=== PATIENT | male | born 1995 | race Caucasian/White ===

== ENCOUNTER 2019-09-20 20:15 | Emergency (ER) | payer SELFPAY ==
[~2019-09-20] VITALS: Ht 180.3 cm; Wt 77.1 kg
--- NOTE | 2019-09-20 20:35 | NUR ---
PT [id number]. BIBS FOR C/O THROAT PAIN AND INFECTION
[2019-09-20] MEDS ORDERED: DEXAMETHASONE SOD PHOSPHATE 10 MG/ML VIAL ONE (20:58)
[2019-09-20] MEDS ORDERED: DEXAMETHASONE SOD PHOSPHATE 10 MG/ML VIAL MC ONE (21:00)
--- NOTE | 2019-09-20 21:04 | NUR ---
STREP SENT TO LAB
--- NOTE | 2019-09-20 22:02 | NUR ---
Patient discharged to home in stable condition. Written and verbal after care instructions given. Patient verbalizes understanding of instruction and RX. Pt Ambulated with steady gait.
[2019-09-20 22:03] VITALS: BP 126/81
== END 2019-09-20 22:03 | disposition home or self-care (01) ==
LOC: ER 20:18
DX: J02.9 Acute pharyngitis, unspecified (principal)
CPT/HCPCS: 87070; 87880; 96372; 99283; J1100; 86403-TC

== ENCOUNTER 2019-09-25 15:18 | Emergency (ER) | payer SELFPAY ==
--- NOTE | 2019-09-25 15:42 | NUR ---
CALLED IN [facility], NO RESPONSE
--- NOTE | 2019-09-25 15:42 | NUR ---
PER REGISTRATION, PT HAS LEFT
== END 2019-09-25 15:43 | disposition left against medical advice (07) ==
LOC: ER 15:19
DX: Z53.21 Procedure and treatment not carried out due to patient leaving prior to being seen by health care provider (principal)

== ENCOUNTER 2023-08-16 14:47 | Emergency (ER) | payer MEDICAID, OTHER ==
[~2023-08-16] VITALS: Ht 182.9 cm; Wt 74.8 kg
[2023-08-16 16:38] VITALS: BP 135/82; TEMP 98; O2SAT 98
== END 2023-08-16 16:31 | disposition home or self-care (01) ==
LOC: ER 14:47
DX: S62.340A Nondisplaced fracture of base of second metacarpal bone, right hand, initial encounter for closed fracture (principal); W22.01XA Walked into wall, initial encounter; Y93.89 Activity, other specified; Y92.89 Other specified places as the place of occurrence of the external cause; Y99.8 Other external cause status
CPT/HCPCS: 73110; 73130-TC